=== PATIENT | female | born 1980 | race Caucasian/White ===

== ENCOUNTER 2016-03-01 04:56 | Observation (INO) | payer OTHER ==
[~2016-03-01] VITALS: Ht 165.1 cm; Wt 107.2 kg
[~2016-03-01 04:56] MED LIST: ADDERALL20 MG PO; ALBUTEROL17 GM IH; ALBUTEROL2.5 MG/3 M IH; AMPHETAMINE SAL20 MG PO; ATARAX10 MG PO; BUPRENORPHIN SUB 8MG PO; BUPRENORPHINE HC2 MG SL; BUPRENORPHINE HC8 MG PO; FLEXERIL10 MG PO; HYDROXYZINE HCL10 MG PO; LEXAPRO10 MG PO; MOTRIN800 MG PO; Motrin PO; PERCOCET 5/31 TABLET PO; PREDNISONE10 MG PO; PREDNISONE20 MG PO; PriLOSEC PO; Proventil,Ventolin H IH; SUBOXONE 8 M1 TABLET PO; SUBUTEX8 MG PO; TOPAMAX100 MG PO; VENTOLIN HFA18 GM IH; XANAX0.5 MG PO; ZOFRAN ODT4 MG PO; Zyvox PO; predniSONE PO
[2016-03-01 05:44] LABS: HEMATOCRIT 36.1 % (36.0-46.0); MCH 28.8 PG (29.0-34.0); MCV 87.4 FL (83-99); MEAN PLAT.VOLUME 9.6 uM^3 (9.5-12.4); PLATELET COUNT 411 K/uL (156-360); RBC DIS.WIDTH-CV 13.8 % (11.8-14.6); RBC DIS.WIDTH-SD 42.9 % (39-53); RED BLOOD COUNT 4.13 M/uL (3.80-5.20); WHITE BLOOD COUNT 8.9 K/uL (4.1-10.2)
[2016-03-01 05:45] LABS: CHLORIDE 103 mEq/L (99-109); SODIUM 139 mEq/L (136-147)
[2016-03-01 05:47] LABS: GLUCOSE 120 mg/dL (70-99)
[2016-03-01 05:49] LABS: ANION GAP 14 MEQ/L (2-14); TOTAL BILIRUBIN 0.4 mg/dL (0.0-1.0)
[2016-03-01 05:51] LABS: ALKALINE PHOSPHATASE 80 IU/L (3-129); GFR ESTIMATE (CALCULATED) > 59 mL/min/
[2016-03-01 05:52] LABS: UREA NITROGEN (BUN) 22 mg/dL (9-23)
[2016-03-01 05:53] LABS: BASOPHIL COUNT 0.1 K/uL (0-0.1); EOSINOPHIL (%) 13.3 % (0-5); EOSINOPHIL COUNT 1.2 K/uL (0-0.3); IMMATURE GRANULOCYTE (%) 0.3 % (0.0-0.7); IMMATURE GRANULOCYTE COUNT 0.3 K/uL; LYMPHOCYTE COUNT 2.7 K/uL (1.0-2.8); MONOCYTE (%) 8.4 % (3-12); MONOCYTE COUNT 0.7 K/uL (0-0.8); NEUTROPHIL (%) 46.9 % (45-76); NEUTROPHIL COUNT 4.2 K/uL (1.8-6.4)
[2016-03-01 06:00] LABS: QUANTITATIVE HCG < 4.0 MIU/ML
[2016-03-01] MEDS ORDERED: BUPRENORPHINE HC8 MG SL (08:54)
[2016-03-01] MEDS ORDERED: ATARAX,VISTARIL25 MG PO (08:57)
[2016-03-01] MEDS ORDERED: OMEPRAZOLE20 M2 PO (08:58)
[2016-03-01 11:21] LABS: INFLUENZA A VIRAL ANTIGEN NEGATIVE; INFLUENZA B VIRAL ANTIGEN NEGATIVE
[2016-03-01 15:59] VITALS: BP 163/74
[2016-03-01 19:00] VITALS: BP 134/83
[2016-03-02 05:56] VITALS: BP 135/76
[2016-03-02 08:00] VITALS: BP 149/87
[2016-03-02 08:05] LABS: INTERNAL CONTROL VALID? YES
[2016-03-02] MEDS ORDERED: SPIRIVA RESPIMAT4 GM IH (10:37)
[2016-03-02] MEDS ORDERED: PREDNISONE10 MG PO (10:37)
[2016-03-02] MEDS ORDERED: ADVAIR HFA120 INHALA IH (10:37)
[2016-03-02] MEDS ORDERED: AZITHROMYCIN500 M1 PO (10:37)
[2016-03-02 11:30] VITALS: BP 116/79
== END 2016-03-02 15:30 | disposition home or self-care (01) ==
LOC: EME → EDBD 04:56 → EDOF 07:17 → 5WEST 15:04
PROVIDERS: Emergency Medicine; Nurse Practitioner Adult Health
DX: J45.41 Moderate persistent asthma with (acute) exacerbation (principal); F41.9 Anxiety disorder, unspecified; Z87.891 Personal history of nicotine dependence; Z83.3 Family history of diabetes mellitus; Z91.018 Allergy to other foods; Z88.5 Allergy status to narcotic agent
CPT/HCPCS: 71020; 80053; 83605; 84702; 85025; 87449; 87502; 94640; 94640 76; 94760; 99202; 99281; 99285; G0378; J0571; J1100; J1885; J2270; J2920; J7030; J7512; J7644; Q0177

== ENCOUNTER 2017-09-12 09:15 | Inpatient (IN) | payer OTHER ==
[~2017-09-12] VITALS: Ht 162.6 cm; Wt 86.4 kg
[~2017-09-12 09:15] MED LIST changes: +ADVAIR HFA120 INHALA IH; +ATARAX,VISTARIL25 MG PO; +AZITHROMYCIN500 M1 PO; +BUPRENORPHINE HC8 MG SL; +OMEPRAZOLE20 M2 PO; +SPIRIVA RESPIMAT4 GM IH
[2017-09-12 10:06] LABS: APPEARANCE CLEAR ((CLEAR)); BILIRUBIN NEGATIVE; BLOOD SMALL; COLOR COLORLESS ((YELLOW)); GLUCOSE (STRIP) NEGATIVE; KETONES 5; LEUKOCYTES NEGATIVE; NITRITE NEGATIVE; PROTEIN (STRIP) NEGATIVE; SPECIFIC GRAVITY 1.002 (1.000-1.030); UROBILINOGEN 0.2 MG/DL (0.2-1.0)
[2017-09-12 10:08] LABS: BACTERIA NONE SEEN /HPF; EPITHELIAL CELLS NONE SEEN /HPF; MUCUS NONE SEEN /LPF; RED BLOOD CELLS 0-5 /HPF (0-5); WHITE BLOOD CELLS 0-5 /HPF (0-5)
[2017-09-12 10:16] LABS: AMPHETAMINE NEGATIVE (500 ng/mL); BARBITURATES NEGATIVE (200 ng/mL); BENZODIAZEPINES NEGATIVE (150 ng/mL); COCAINE NEGATIVE (150 ng/mL); METHADONE NEGATIVE (200 ng/mL); METHAMPHETAMINE NEGATIVE (500 ng/mL); OPIATES (MORPHINE) NEGATIVE (100 ng/mL); OXYCODONE NEGATIVE (100 ng/mL); PHENCYCLIDINE NEGATIVE (25 ng/mL); PROPOXYPHENE NEGATIVE (300 ng/mL); THC CANNABINOIDS NEGATIVE (50 ng/mL); TRICYCLIC ANTIDEPRESSANTS NEGATIVE (300 ng/mL)
[2017-09-12 10:17] LABS: BUPRENORPHINE PRESUMPTIVE POSITIVE (10 ng/mL)
[2017-09-12 10:24] LABS: HEMATOCRIT 34.5 % (36.0-46.0); HEMOGLOBIN 12.4 G/DL (11.9-15.5); MCH 31.2 PG (29.0-34.0); MCHC 35.9 G/DL (30.0-36.0); MCV 86.9 FL (83-99); PLATELET COUNT 303 K/uL (156-360); RBC DIS.WIDTH-CV 12.4 % (11.8-14.6); RBC DIS.WIDTH-SD 39.4 % (39-53); RED BLOOD COUNT 3.97 M/uL (3.80-5.20); WHITE BLOOD COUNT 13.1 K/uL (4.1-10.2)
[2017-09-12 10:36] LABS: ALBUMIN 4.7 g/dL (3.2-4.8); CHLORIDE 95 mEq/L (99-109); POTASSIUM 3.5 mEq/L (3.7-5.4); SODIUM 132 mEq/L (136-147)
[2017-09-12 10:39] LABS: GLUCOSE 102 mg/dL (70-99); TOTAL PROTEIN 7.4 g/dL (6.4-8.3)
[2017-09-12 10:40] LABS: TOTAL BILIRUBIN 1.5 mg/dL (0.0-1.0)
[2017-09-12 10:41] LABS: SERUM ETHYL ALCOHOL < 10 mg/dL
[2017-09-12 10:42] LABS: CREATININE 0.8 mg/dL (0.6-1.3); GFR ESTIMATE (CALCULATED) > 59 mL/min/
[2017-09-12 10:43] LABS: ALKALINE PHOSPHATASE 63 IU/L (3-129)
[2017-09-12 10:44] LABS: AST (GOT) 63 IU/L (2-34); UREA NITROGEN (BUN) 17 mg/dL (9-23)
[2017-09-12 10:46] LABS: ACETAMINOPHEN (TYLENOL) < 10 mcg/mL (10-30); ALT (GPT) 37 IU/L (3-49); SALICYLATE < 5.0 MG/DL (15-30)
[2017-09-12 10:47] LABS: LIPASE 83 U/L (1.0-51.0)
[2017-09-12 10:53] LABS: QUANTITATIVE HCG < 4.0 MIU/ML
[2017-09-12 17:35] VITALS: BP 128/78
[2017-09-13 09:27] VITALS: BP 99/55
[2017-09-14 07:42] VITALS: BP 141/76
[2017-09-14 15:21] VITALS: BP 132/78
[2017-09-15 07:35] VITALS: BP 117/62
[2017-09-15 16:16] VITALS: BP 133/89
[2017-09-16 07:55] VITALS: BP 153/91
[2017-09-16 16:00] VITALS: BP 134/94
[2017-09-17 07:47] VITALS: BP 156/96
[2017-09-17 16:25] VITALS: BP 147/91
[2017-09-18 08:11] VITALS: BP 150/92
[2017-09-18 16:30] VITALS: BP 138/63
[2017-09-19 07:48] VITALS: BP 131/67
[2017-09-19 16:29] VITALS: BP 136/74
[2017-09-20 08:01] VITALS: BP 128/77
[2017-09-20 16:32] VITALS: BP 138/85
[2017-09-21 09:55] VITALS: BP 1198/75
[2017-09-21 16:18] VITALS: BP 140/70
[2017-09-22 07:53] VITALS: BP 153/69
[2017-09-22 17:00] VITALS: BP 137/82
[2017-09-23 08:05] VITALS: BP 126/73
[2017-09-23 16:13] VITALS: BP 127/80
[2017-09-24 08:10] VITALS: BP 92/55
[2017-09-24 15:22] VITALS: BP 109/62
[2017-09-25 09:30] VITALS: BP 127/71
[2017-09-25 16:09] VITALS: BP 148/102
[2017-09-26 07:45] VITALS: BP 125/68
[2017-09-26 16:18] VITALS: BP 120/76
[2017-09-27 07:47] VITALS: BP 102/58
[2017-09-27 15:20] VITALS: BP 133/88
[2017-09-28 07:47] VITALS: BP 116/70
[2017-09-28 15:23] VITALS: BP 129/68
[2017-09-29 07:49] VITALS: BP 146/101
[2017-09-29 09:03] VITALS: BP 131/71
[2017-09-29 16:38] VITALS: BP 122/92
[2017-09-30 07:51] VITALS: BP 124/87
[2017-09-30 16:16] VITALS: BP 119/73
[2017-10-01 07:57] VITALS: BP 122/76
[2017-10-01 16:18] VITALS: BP 123/84
[2017-10-02 07:59] VITALS: BP 127/93
[2017-10-02 16:08] VITALS: BP 102/59
[2017-10-03] MEDS ORDERED: CEPHALEXIN500 MG PO (08:54)
[2017-10-03] MEDS ORDERED: DOCUSATE SODIU100 MG PO (08:54)
[2017-10-03] MEDS ORDERED: ZYPREXA20 MG PO (08:55)
[2017-10-03 09:01] VITALS: BP 145/87
== END 2017-10-03 10:40 | disposition home or self-care (01) | DRG 885 ==
LOC: EME 09:15 → 1WEST 12:38 → EDOF 12:38 → ENRESERV 17:18 → 1WEST 17:19
PROVIDERS: Nurse Practitioner Family
PROC: 0H9MXZZ Drainage of Right Foot Skin, External Approach (ICD-10-PCS; principal; 2017-09-26)
DX: F31.2 Bipolar disorder, current episode manic severe with psychotic features (principal); Z78.1 Physical restraint status; F41.9 Anxiety disorder, unspecified; F12.90 Cannabis use, unspecified, uncomplicated; J45.909 Unspecified asthma, uncomplicated; K21.9 Gastro-esophageal reflux disease without esophagitis; S90.851A Superficial foreign body, right foot, initial encounter; W45.8XXA Other foreign body or object entering through skin, initial encounter; Z91.14 Patient's other noncompliance with medication regimen; Z91.5 Personal history of self-harm; F11.90 Opioid use, unspecified, uncomplicated; K59.00 Constipation, unspecified; Z87.891 Personal history of nicotine dependence; G47.00 Insomnia, unspecified; F23 Brief psychotic disorder
CPT/HCPCS: 73630; 80053; 81003; 83690; 84702; 85027; 90837; 94640; 94799; 97150 GO; 97165 GO; 99281; 99285; G0480; J0571; J2060; Q0177